=== PATIENT | male | born 1995 | race Caucasian/White ===

== ENCOUNTER 2018-09-19 20:59 | Emergency (ER) | payer OTHER ==
[~2018-09-19] VITALS: Ht 198.1 cm; Wt 99.8 kg
[~2018-09-19 20:59] MED LIST: VYVANSE20 MG
[2018-09-19] MEDS ORDERED: KEFLEX500 M1 PO (21:47)
[2018-09-19 21:59] VITALS: BP 151/91
== END 2018-09-19 22:02 | disposition home or self-care (01) ==
LOC: M.ERS 20:59
DX: S61.411A Laceration without foreign body of right hand, initial encounter (principal); W31.0XXA Contact with mining and earth-drilling machinery, initial encounter; Y93.89 Activity, other specified; Y92.89 Other specified places as the place of occurrence of the external cause; Y99.8 Other external cause status

== ENCOUNTER 2019-03-16 16:03 | Emergency (ER) | payer OTHER ==
[~2019-03-16] VITALS: Ht 198.1 cm; Wt 104.3 kg
[~2019-03-16 16:03] MED LIST changes: +KEFLEX500 M1 PO; -VYVANSE20 MG; +VYVANSE20 MG PO
[2019-03-16 16:33] LABS: URINE BILIRUBIN NEGATIVE (Negative); URINE BLOOD NEGATIVE (Negative); URINE CLARITY CLEAR; URINE COLOR YELLOW; URINE GLUCOSE-RANDOM NEGATIVE (Negative); URINE KETONES NEGATIVE (Negative); URINE LEUKOCYTES-REFLEX NEGATIVE (Negative); URINE NITRITE-REFLEX NEGATIVE (Negative); URINE PROTEIN NEGATIVE (Negative)
[2019-03-16 16:41] LABS: ABSOLUTE BASOPHILS 0.1 thou/uL (0.0-0.2); ABSOLUTE LYMPHOCYTES 1.4 thou/uL (0.8-5.3); ABSOLUTE MONOCYTES 0.8 thou/uL (0.0-1.2); ABSOLUTE NEUTROPHILS 5.8 thou/uL (1.6-8.1); BASOPHILS 0.8 %; EOSINOPHILS 0.4 %; HEMATOCRIT 45.6 % (42.0-52.0); HEMOGLOBIN 16.7 gm/dL (14.0-18.0); LYMPHOCYTES 17.2 %; MCHC 36.7 g/dL (28.0-37.0); MCV 84.5 fL (80.0-100.0); MONOCYTES 9.8 %; MPV 7.3 fl. (7.2-11.1); NUCLEATED RBCS 0 /100WBC; PLATELET COUNT* 189 thou/uL (150-400); POLYS 71.8 %; RDW-CV 13.4 % (10.5-14.5); WBC 8.1 thou/uL (4.0-11.0)
[2019-03-16 16:55] LABS: CALCIUM 9.5 mg/dL (8.5-10.1); CREATININE 1.1 mg/dL (0.6-1.3); POTASSIUM 4.2 mmol/L (3.5-5.1)
[2019-03-16 17:05] LABS: TOTAL BILIRUBIN 0.7 mg/dL (<0.1-1.0); TOTAL PROTEIN 7.8 g/dL (6.4-8.2)
[2019-03-16] MEDS ORDERED: NORCO 5-325 TA1 EAC1 PO (18:06)
[2019-03-16] MEDS ORDERED: FLAGYL500 M1 PO (18:06)
[2019-03-16] MEDS ORDERED: CIPRO500 M1 PO (18:06)
[2019-03-16] MEDS ORDERED: ONDANSETRON HCL4 M2 PO (18:10)
[2019-03-16 18:16] VITALS: BP 135/82
== END 2019-03-16 18:16 | disposition home or self-care (01) ==
LOC: M.ERS 16:03
PROVIDERS: Nurse Practitioner Family
DX: K50.90 Crohn's disease, unspecified, without complications (principal); R11.2 Nausea with vomiting, unspecified; F90.9 Attention-deficit hyperactivity disorder, unspecified type